=== PATIENT | male | born 1935 | race Caucasian/White ===

== ENCOUNTER → 2019-02-21 | Outpatient (CLI) | payer OTHER | LOC: RAD 09:35 | DX: R05 Cough (principal); R09.89 Other specified symptoms and signs involving the circulatory and respiratory systems ==

== ENCOUNTER → 2020-03-29 | Outpatient (CLI) | payer OTHER | LOC: RAD 16:14 | PROVIDERS: ATTEND Neuromusculoskeletal Medicine & OMM | DX: M46.06 Spinal enthesopathy, lumbar region (principal); M43.27 Fusion of spine, lumbosacral region; M54.30 Sciatica, unspecified side ==

== ENCOUNTER → 2020-04-10 | Outpatient (CLI) | payer OTHER | LOC: MRI 08:58 | PROVIDERS: ATTEND Neuromusculoskeletal Medicine & OMM | DX: M51.16 Intervertebral disc disorders with radiculopathy, lumbar region (principal); M48.061 Spinal stenosis, lumbar region without neurogenic claudication ==

== ENCOUNTER → 2020-04-24 | Outpatient (CLI) | payer OTHER ==
[~2020-04-24] VITALS: Ht 175.3 cm; Wt 102.1 kg
[~2020-04-24] MED LIST: AMLODIPINE BESY10 MG PO; ATORVASTATIN CA10 MG PO; FINASTERIDE5 MG PO; FISH OIL 1,0001 EAC9 PO; GLIPIZIDE XL10 MG PO; GLUCOPHAGE500 MG PO; LOSARTAN-HCTZ1 EAC2 PO; TERAZOSIN HCL10 MG PO; VITAMIN B-12500 MC5 PO
--- NOTE | ~2020-04-24 | HPC ---
[facility] [place] [address] PAIN MANAGEMENT CONSULTATION Name: JUAN MARIE [id number] Admission: 04/24/20 Attend Phys: Pollo Bob DO Discharge: Date of : 36 Report #: [id number] THIS REPORT FOR: cc: Herminio Dexter,Pollo Huang DO ~ CC: Pollo Dexter MD DATE OF SERVICE: 04/24/2020 CHIEF COMPLAINT: Low back pain, bilateral lower extremity pain with paresthesias. HISTORY OF PRESENT ILLNESS: As you know, the patient is a very pleasant 84-year-old male who reports progressively worsening lower extremity weakness that began about 1 year ago. He had increasing pain that began in February 2020. He denies injury or trauma. He sought evaluation through [facility] who advised the patient that there was a likelihood of fairly significant arthritic changes of the cervical spine. He was sent to see Dr. Faria, their pain management practitioner who advised the patient, he had severe arthritic changes of the low back, but was more concerned about cervical radicular symptoms. The patient returned to see his primary care physician, Dr. Dexter who then referred the patient to Dr. Royce Chatterjee for evaluation for lumbar radiculopathy. MRI findings dated 04/10/2020 showed severe near critical central canal stenosis at this L3-L4 and L4-L5 level. The patient was advised of the surgical options. He could undergo to treat symptoms. The patient chose conservative treatment initially. He was subsequently referred to our clinic to discuss the possibility of undergoing epidural injections. The patient describes today, pain is continuous with intermittent exacerbation of his symptoms, radiating pain all the way up to 10/10. The patient indicates his symptoms are cramping and throbbing in sensation, though he is having perceived weakness in the lower extremities and difficulty with ambulating long distances. He describes the pain as 3/10 today, daily average at 8/10, worst pain has been is 10/10. The patient states that standing and walking any distance exacerbates symptoms as well as lying in bed and arising from bed in the morning and improves with repositioning, sitting and movement. He has been referred to our service to discuss treatment options for suspected lumbar radiculopathy secondary to severe near critical central canal stenosis. PAST MEDICAL HISTORY: 1. Diabetes mellitus type 2. 2[place] [address] PAIN MANAGEMENT CONSULTATION Name: JUAN MARIE [id number] Admission: 04/24/20 Attend Phys: Pollo Bob DO Discharge: Date of : 36 Report #: [id number] 3. Hypertension. 4. Bleeding disorder. 5. Coronary artery disease. 6. Peptic ulcer disease. PAST SURGICAL HISTORY: Carpal tunnel release, left in November 2019 and lumbar diskectomy in . SOCIAL HISTORY: The patient denies tobacco, IV or illicit drug use, admits to 2-3 alcoholic beverages per day. He is retired, retiring in 2005. He is not receiving workmen's compensation nor is trying to obtain discrete benefits. He is not in litigation in regards to pain. He is unaccompanied at today's visit. REVIEW OF SYSTEMS: Positive for fatigue and weakness, wearing corrective eyewear, hearing loss with tinnitus, shortness of breath with walking or lying flat, loss of appetite, frequent urination, nocturia, incontinence, dribbling to urine, sexual difficulty, non-insulin dependent diabetes, excessive thirst and urination, bleeding and bruising tendencies, weakness in the lower extremities and chronic low back pain. All other review of systems negative per 12-point review of systems other than those listed in history of present illness. Pain impact score rated at 47/70 indicating severe interference of daily activities secondary to pain. IMAGING: MRI lumbar spine obtained 04/10/2020 shows L2-L3 with no disk bulge, no central canal stenosis. There is ligamentum flavum hypertrophy. L3-L4 shows acquired central canal stenosis secondary to facet arthropathy and hypertrophy of the ligamentum flavum, reducing canal to 6 mm. At L4-L5, there is central canal stenosis secondary to broad-based disk bulge, hypertrophy and ligamentum flavum hypertrophy leading to central canal measuring only 5 mm. L5-S1, no significant disk bulge, central canal appears normal. There is severe facet arthropathy with severely narrowed left and severely narrowed right neural foramen. PQRS: The patient has known arthritic changes of bilateral hands and lumbar spine. No rheumatoid arthritis. He is placing current pain score 3/10. He is at fall risk, but has not had a fall in last 3 months. He utilizes a cane for ambulation and balance as he has bilateral lower extremity weakness. He is not on blood thinners, but is treated for hypertension. He is not on chronic opioids and has a low opiate addiction potential based on our assessment tool. Pain impact is 47/70, severe interference of daily activities secondary to pain. PHYSICAL EXAMINATION: VITAL SIGNS: Blood pressure 135/60, pulse 70, respiratory rate 16 and unlabored. The patient is 100% on room air. Height 5 feet 9 inches tall, weight 225 pounds, BMI calculated 33.2. [address] [place] [address] PAIN MANAGEMENT CONSULTATION Name: JUAN MARIE Room #: REG [facility]#: [id number] Admission: 04/24/20 Attend Phys: Pollo Bob DO Discharge: Date of : 36 Report #: [id number] GENERAL: Well-developed, well-nourished, well-hydrated exogenously obese 84-year-old male. He appears his stated age. He is placing current pain score at today's visit 12/12. HEENT: Normocephalic, atraumatic. Pupils equal, round and reactive. NEUROLOGIC: Speech is fluent. The patient deemed an excellent historian. LUNGS: Clear, no wheeze, rhonchi or rales. CARDIOVASCULAR: Regular. No appreciable gallop, no rub. ABDOMEN: Soft, obese, normoactive bowel sounds. EXTREMITIES: Show no clubbing, no cyanosis, no edema. MUSCULOSKELETAL: Lower extremity strength is symmetrical 5/5, though there is some weakness with sustained contraction. Deep tendon reflexes 1+/4 at patella and Achilles. Babinski is downgoing. Gait is antalgic favoring right lower extremity. He utilizes a cane for ambulation. Pain is elicited with weightbearing. Muscle bulk and tone equal and symmetrical. Seated straight leg raising is positive. Supine straight leg raising is positive. Irina's test is negative. Modified Gaenslen's positive for axial low back pain. ASSESSMENT: 1. Symptomatic lumbar radiculopathy. 2. 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 3. Displacement of lumbar intervertebral disk with radiculopathy. 4. Lumbosacral spondylosis with radiculopathy. 5. Neural foraminal stenosis of lumbar spine. 6. Lumbar degeneration. 7. Chronic intractable pain. PLAN: 1. Based on today's physical exam and history the patient provides the descriptors the patient uses in regards to pain as well as the increasing weakness he is experiencing in his legs as well as a loss of proprioception. Likely source of the patient's pain is central canal stenosis. The patient does have severe near critical central canal stenosis at levels L3-L4 and L4-L5 with L4-L5 being greater compressive area. We have discussed the findings of his MRI and correlated those to his current symptoms and weakness he has been experiencing in the bilateral legs. After discussion of the findings of his MRI and how they correlate to his current symptoms. We discussed the treatment options available breakthrough pain management. We discussed the following with the patient today. We discussed physical therapy, stretching exercises, core strengthening and a concerted effort at weight loss. We discussed medication management with addition of neuropathic pain medications and a consistent nonsteroidal anti-inflammatory. We discussed lumbar epidural injection under fluoroscopic guidance for which the patient was referred to our service. We also discussed the possibility of using a spinal cord stimulator, provided analgesic benefit. We also discussed surgical decompression at the L3-L4 and L4-L5 level to address [address] [address] PAIN MANAGEMENT CONSULTATION Name: JUAN MARIE Room #: REG SERJIO Graves#: [id number] Admission: 04/24/20 Attend Phys: Pollo Bob DO Discharge: Date of : 36 Report #: [id number] severe near critical central canal stenosis. After reviewing the risks and benefits of all proposed treatment options, the patient chose to move forward with a lumbar epidural injection under fluoroscopic guidance. 2. The patient was advised that due to third alliance party payer restrictions, authorization would have to be obtained before the patient could undergo a lumbar epidural injection. We will begin the authorization process immediately. This may take 12-72 hours to gain the authorization. We will begin this process immediately. We will then have the patient return once that has been completed. 3. No medication changes made at today's visit. The patient will continue current medical therapy as previously prescribed. 4. We will see the patient back in followup visit to undergo the first in a series of lumbar epidural injections once the authorization has been obtained. We are hopeful that we will have this authorization quickly to be able to provide the injection requested by Dr. Royce Chatterjee and the primary care physician, Dr. Dexter to address this gentleman's ongoing lower extremity pain. 5. We wish to thank Dr. Chatterjee and Dr. Dexter for the referral of this patient to our clinic. We will keep you apprised of his response to treatment as we address lumbar radiculopathy secondary to severe near critical central canal stenosis. Again, we wish to thank you for the opportunity to see the patient in consultation. By: [id number] Pollo Bob DO /nt
[2020-04-24 14:52] VITALS: BP 135/60
--- NOTE | 2020-04-24 15:05 | NUR ---
Pain Clinic Assessment: 1. History of Osteoarthritis: HANDS History of Rheumatoid Arthritis: Not Applicable 2. Height: 5 ft. 9 in. 175.3 cm. Weight: 225.0 lb. oz. 102.060 kg. Patient's BMI: 33.2 3. Vital Signs: BP: 135/60 Pulse: 70 Resp: 16 Temp: 02 Sat: 100 ECG Mon: 4. Pain Intensity: 3 5. Fall Risk: Dizziness: N Needs help standing or walking: Y Fallen in the last 3 months: N Fall risk comments: 6. Patient on Blood Thinner: None 7. History of Hypertension: Y 8. Opioid Therapy greater than 6 weeks: N Opiate Contract Signed: 9. Risk Assessment Tool Provided: low-0 10. Functional Assessment Tool: 11. Recreational Drug Use: Never Drug Type: Tobacco Use: Former Smoker Tobacco Type: Amount or Packs/day: How Many Years: Alcohol Use: Yes Frequency: Daily Quant: 2-3
== END ==
LOC: PAIN 07:05
PROVIDERS: ATTEND Anesthesiology Pain Medicine
DX: M54.5 Low back pain (principal); M79.604 Pain in right leg; M79.605 Pain in left leg; R20.2 Paresthesia of skin; E11.9 Type 2 diabetes mellitus without complications; I10 Essential (primary) hypertension; E78.2 Mixed hyperlipidemia; D68.9 Coagulation defect, unspecified; I25.10 Atherosclerotic heart disease of native coronary artery without angina pectoris; K27.9 Peptic ulcer, site unspecified, unspecified as acute or chronic, without hemorrhage or perforation

== ENCOUNTER → 2020-04-25 | Outpatient (CLI) | payer OTHER ==
[~2020-04-25] VITALS: Ht 175.3 cm; Wt 102.1 kg
[2020-04-25 15:36] VITALS: BP 131/58
--- NOTE | 2020-04-25 15:51 | NUR ---
Pain Clinic Assessment: 1. History of Osteoarthritis: HANDS History of Rheumatoid Arthritis: Not Applicable 2. Height: 5 ft. 9 in. 175.3 cm. Weight: 225.0 lb. oz. 102.060 kg. Patient's BMI: 33.2 3. Vital Signs: BP: 131/58 Pulse: 66 Resp: 14 Temp: 02 Sat: 98 ECG Mon: 4. Pain Intensity: 3 NOW 6-7 IN AM 5. Fall Risk: Dizziness: N Needs help standing or walking: Y Fallen in the last 3 months: N Fall risk comments: 6. Patient on Blood Thinner: None 7. History of Hypertension: Y 8. Opioid Therapy greater than 6 weeks: N Opiate Contract Signed: 9. Risk Assessment Tool Provided: low-0 10. Functional Assessment Tool: / 11. Recreational Drug Use: Never Drug Type: Tobacco Use: Former Smoker Tobacco Type: Amount or Packs/day: How Many Years: Alcohol Use: Yes Frequency: Quant:
== END | disposition home or self-care (01) ==
LOC: PAIN 14:28
PROVIDERS: ATTEND Anesthesiology Pain Medicine
DX: M54.16 Radiculopathy, lumbar region (principal); G89.29 Other chronic pain; Z98.890 Other specified postprocedural states; Z79.899 Other long term (current) drug therapy; Z87.891 Personal history of nicotine dependence

== ENCOUNTER 2020-12-02 15:00 | Emergency (ER) | payer OTHER ==
[~2020-12-02] VITALS: Ht 177.8 cm; Wt 99.8 kg
--- NOTE | ~2020-12-02 | EMS ---
[address] [address] EMS Patient Care Report Name: JUAN MARIE Room #: DEP FRANCISCO Graves#: [id number] Admission: 12/02/20 Attend Phys: Discharge: 12/02/20 Date of : 36 Report #: [id number] THIS REPORT FOR: //name// Report Transmitted: 12/02/2020 19:14 EMS Care Summary [facility] MED-ACT Incident [id number] @ 12/02/2020 14:26 Incident [address] [place] [address] Patient JUAN MARIE Male, 84 Years 1935 Patient Address [address] [place] [address] Patient History Congestive Heart Failure (CHF),Diabetes, Patient Allergies Sulfa, Patient Medications Losartan, Metformin, Amlodipine, Glipizide, Finasteride, Terazosin, Chief Complaint "I fell and hurt my back" Disposition Transported No Lights/[place] Reason Falls Transported To [facility] Narrative HISTORY: Upon EMS arrival the patient was sitting at the kitchen table with. The patient stated he was carrying a laundry basket through the kitchen and he tripped over a tile on the kitchen floor, he stated he fell forward hitting his face on the kitchen table and then landing on his stomach on the floor. The [address] [address] EMS Patient Care Report Name: JUAN MARIE Room #: DEP [facility]#: [id number] Admission: 12/02/20 Attend Phys: Discharge: 12/02/20 Date of : 36 Report #: [id number] patient denied losing consciousness or having any lightheadedness, N/V, or dizziness after the fall. He stated he felt a sharp localized pain in the middle of his thoracic spine, he denied it radiating up or down his spine. He stated he had had surgery on his lower back in September and was concerned about reinjuring the repaired area. He denied there being any pain in his lower back. The patient stated that it is normal for him to be off balance and had fallen once a year ago. He stated he is diagnosed with CHF and has chronic issues with weakness, he stated, "when I fall I can't get up on my own". He stated a neighbor came over to his house and assisted him in getting up and getting to the kitchen table today. The patient denied any numbness, tingling, loss of sensation or burning sensation in the upper or lower extremities, he denied any N/V, change in vision, GOMES, neck pain, lightheadedness or dizziness while sitting or standing, he denied any increase in weakness or unilateral weakens. The patient denied having any recent COVID-19 symptoms or recently knowingly coming into contact with an individual that has COVID-19. TREATMENT: V/S monitored, the patient had a mask on prior to EMS arrival, IV established, TEMP, 50mcg of fentanyl was administered IVSP, 4 lead, the patient was put in the position of comfort, exams were repeated. TRANSPORT: The patient stood and walked to the cot with assistance, he was moved to the ED bed via sheet drag without incident. DESTINATION: The patient was taken to [facility] ED room 2, report was given to nursing staff. Initial Vitals @14:49P: 86,WA Suspected: false @14:48P: 79,R: 20,BP: 185/71,SpO2: 96, @14:42P: 86,R: 20,BP: 187/68,Pain: 8/10,GCS: 15,Temp: 98.5F,SpO2: 97,Revised Trauma: 12, @14:55P: 66,R: 20,BP: 166/72,Pain: 4/10,SpO2: 96, Assessments @14:34MENTAL:Person Oriented,Event Oriented,Time Oriented,Place Oriented,SKIN:HEENT:Eyes: Left Pupil: 4-mm,Eyes: Right Pupil: 4-mm,Head/Face: Other,LUNG SOUNDS:ABDOMEN:PELVIS//GI:EXTREMITIES:Left Leg: Edema,Right Leg: Edema,PULSE:Radial: 2+ Normal,NEURO: Impression Back Pain Procedures @PTASurgical Mask on PatientResponse: Unchanged@14:45Saline Lock 10cc (20 ga) Site: Antecubital-LeftResponse: UnchangedSucceeded@14:47Fentanyl - 50 Micrograms (mcg) - Intravenous (IV)Response: Improved [address] [address] EMS Patient Care Report Name: JUAN MARIE Room #: DEP FRANCISCO Graves#: [id number] Admission: 12/02/20 Attend Phys: Discharge: 12/02/20 Date of : 36 Report #: [id number] Timeline CLINICAL DOCUMENT IMPROVEMENT EDUCATOR,Surgical Mask on Patient,Response: Unchanged 14:25,Call Received 14:25,Psap Call 14:26,Dispatched 14:27,En Route 14:32,On Scene 14:33,At Patient 14:42,BP: 187/68 M,PULSE: 86,RR: 20 R,SPO2: 97 Ox,ETCO2: ,BG: ,PAIN: 8,GCS: 15, 14:45,Saline Lock 10cc 20 ga Site: Antecubital-Left,Response: UnchangedSucceeded, 14:47,Fentanyl - 50 Micrograms (mcg) - Intravenous (IV),Response: Improved 14:48,BP: 185/71 M,PULSE: 79,RR: 20 R,SPO2: 96 Ox,ETCO2: ,BG: ,PAIN: ,GCS: , 14:49,Depart Scene 14:49,BP: / M,PULSE: 86,RR: R,SPO2: Ox,ETCO2: ,BG: ,PAIN: ,GCS: , 14:55,BP: 166/72 M,PULSE: 66,RR: 20 R,SPO2: 96 Ox,ETCO2: ,BG: ,PAIN: 4,GCS: , 14:55,At Destination 15:09,Call Closed Disclaimer v1.1 Copyright 2020 [employer] This EMS Care Summary contains data elements from the applicable legal record (which may be displayed differently). It is designed to provide pertinent information for the following purposes: continuity of care, clinical quality, and state data reporting. The complete legal record is available to ED staff and administrators of the receiving hospital in [employer] Patient Tracker. All data is provided "as is."
[2020-12-02] MEDS ORDERED: METFORMIN HCL500 M3 PO (15:13)
[2020-12-02] MEDS ORDERED: VITAMIN D3-ALO1 EACH PO (15:13)
[2020-12-02] MEDS ORDERED: VITAMIN B-125000 MCG SUBLING (15:14)
[2020-12-02] MEDS ORDERED: HYDROCODON-ACE1 EAC7 PO (16:57)
[2020-12-02 18:00] VITALS: BP 143/51
== END 2020-12-02 18:00 | disposition home or self-care (01) ==
LOC: ER 15:00
DX: S02.2XXA Fracture of nasal bones, initial encounter for closed fracture (principal); S27.52XA Contusion of thoracic trachea, initial encounter; Z87.891 Personal history of nicotine dependence; Z79.899 Other long term (current) drug therapy; Z88.2 Allergy status to sulfonamides; W01.190A Fall on same level from slipping, tripping and stumbling with subsequent striking against furniture, initial encounter; Y93.89 Activity, other specified; Y92.89 Other specified places as the place of occurrence of the external cause; Y99.8 Other external cause status

== ENCOUNTER → 2021-09-20 | Outpatient (CLI) | payer OTHER ==
[~2021-09-20] VITALS: Ht 177.8 cm; Wt 97.5 kg
[~2021-09-20] MED LIST changes: +HYDROCODON-ACE1 EAC7 PO; +METFORMIN HCL500 M3 PO; +TOPROL XL25 MG PO; +VITAMIN B-125000 MCG SUBLING; +VITAMIN B12-FO1 EAC1 PO; +VITAMIN D3-ALO1 EACH PO; +VITAMIN D310 MC2 PO
--- NOTE | 2021-09-25 09:38 | P ---
[facility] [place] [address] PROCEDURE REPORT Name: JUAN MARIE [facility] #: [facility] [id number] Admission: 09/20/21 Attend Phys: Israel Altman Discharge: Date of : 36 Report #: [id number] THIS REPORT FOR: cc: Pollo Thompson James A. DO McElhinney, Christian C. MD ~ cc: Pollo Thompson DO DATE OF SERVICE: 09/20/2021 PROCEDURE PERFORMED: Upper endoscopy with biopsies and esophageal dilation. HISTORY OF PRESENT ILLNESS: The patient is an 85-year-old male who underwent an upper endoscopy by myself with dilation on 04/05/2015. He was noted to have significant white plaquing of his esophagus. Biopsies at that time showed hyperkeratosis and parakeratosis. No fungal elements were noted. Dilation was performed at that time, which was helpful. DESCRIPTION OF PROCEDURE: The risks and benefits of the procedure were explained to the patient, those risks including, but not limited to bleeding, perforation, and the risk of sedation. He understood these risks and gave informed consent. Sedation was given using propofol per Anesthesia. Next, using a standard Olympus upper endoscope, the scope was placed in the patient's mouth and advanced under direct vision through the esophagus, stomach and into the second portion of the duodenum. The larynx was normal in appearance. Throughout the upper, mid and portion of the distal esophagus, white plaquing was again noted. This was similar in appearance to 6 years ago. Multiple biopsies were obtained. There was no obvious stricture at the GE junction, it was normal. Overall, the gastric mucosa was normal. The pylorus was normal and patent. The duodenal bulb, first and second portion were all normal. The scope was then brought back up into the patient's stomach and a Savary guidewire was inserted through the scope, leaving the guidewire in place. The scope was then withdrawn. Next, a 48-Hebrew Savary dilation was then performed without difficulty. The wire and dilator removed. The scope was reintroduced into the patient's stomach. There was no evidence of mucosal tear after dilation. The scope was then withdrawn and the procedure terminated. The patient tolerated the procedure well. IMPRESSION: 1. Significant white plaquing throughout the esophagus as noted before. Biopsies obtained. 2. Otherwise normal upper endoscopy. RECOMMENDATIONS: 1. Await biopsy results. 2. Observe the patient status post dilation. [address] [address] PROCEDURE REPORT Name: JUAN MARIE [facility] [id number] Admission: 09/20/21 Attend Phys: Israel Altman Discharge: Date of : 36 Report #: [id number] Thank you for allowing me to participate in his care. <ELECTRONICALLY SIGNED> By: Israel Davis MD 09/25/21 0938 [id number] [id number] Israel Davis MD /macario
--- NOTE | 2021-09-26 13:08 | PATH ---
[facility] [address] [place] [address] PATHOLOGY RPT PROCEDURE Name: FRANKJUAN Room #: REG [facility] Reymundo.#: [id number] Admission: 09/20/21 Date of : 36 Discharge: Report #: [id number] Path Case #: [id number] [facility] Accession Number: [id number] . 01 Material submitted: . esophagus - ESOPHAGEAL PLAQUE BIOPSY . 01 Clinical history: . ESOPHAGOGASTRODUODENOSCOPY DYSPHAGIA DYSPHAGIA, ESOPHAGITIS . 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 . (RONNIE:damaso; 09/24/2021) [facility] 09/24/2021 1606 Local . 02 Comment: We find no evidence of high grade dysplasia or of malignancy. . (RONNIE:damaso; 09/24/2021) . 02 Electronically signed: . Tc Pinon MD, Pathologist NPI- [id number] . 01 Gross description: . The specimen is received in formalin, labeled "Juan Marie, esophageal plaque BX". Received are 3 segments of pale fernandes tissue ranging in size from 0.3 to 0.5 cm in maximum dimensions. The specimen is submitted entirely in cassette A1.([facility]; 09/23/2021) [facility] 09/23/2021 1028 Local . 02 Pathologist provided ICD-10: K22.9 . 02 CPT . 129029 Specimen Comment: A courtesy copy of this report has been sent to [phone], [phone] Specimen Comment: [id number] Specimen Comment: Report sent to , DR GILES /DR DE LEON Specimen Comment: A duplicate report has been generated due [place] [address] PATHOLOGY RPT PROCEDURE Name: JUAN MARIE Room #: REG CLI [facility].#: [id number] Admission: 09/20/21 Date of : 36 Discharge: Report #: [id number] Path Case #: [id number] Performed at: 01 [facility] [address] [id number] MD Santana Spencer MD Phone: [phone] Performed at: [address] [facility] [address] [id number] MD Tc Pinon MD Phone: [phone]
== END | disposition home or self-care (01) ==
LOC: GI 10:01
PROVIDERS: ATTEND Specialist
DX: K22.89 Other specified disease of esophagus (principal); I10 Essential (primary) hypertension; E78.00 Pure hypercholesterolemia, unspecified; E11.9 Type 2 diabetes mellitus without complications; N40.0 Benign prostatic hyperplasia without lower urinary tract symptoms; G47.30 Sleep apnea, unspecified; Z98.890 Other specified postprocedural states; Z20.822 Contact with and (suspected) exposure to COVID-19; Z79.899 Other long term (current) drug therapy; Z87.891 Personal history of nicotine dependence; Z88.2 Allergy status to sulfonamides
CPT/HCPCS: 62110; 62900

== ENCOUNTER 2021-10-08 07:15 | Inpatient (IN) | payer OTHER ==
[~2021-10-08] VITALS: Ht 177.8 cm; Wt 94.8 kg
--- NOTE | ~2021-10-08 | EMS ---
[facility] [address] [place] [address] EMS Patient Care Report Name: JUAN MARIE Room #: REG FRANCISCO Graves#: [id number] Admission: 10/08/21 Attend Phys: Discharge: Date of : 37 Report #: [id number] THIS REPORT FOR: //name// Report Transmitted: 10/08/2021 08:30 EMS Care Summary [facility] MED-ACT Incident [id number] @ 10/08/2021 06:42 Incident Location [address] [place] [address] Patient JUAN MARIE Male, 85 Years 1935 Patient Address [address] [place] [address] Patient History Diabetes,Hypertension (HTN),Hyperlipidemia,Back Surgery, Patient Allergies No known allergies, Patient Medications Terazosin, Losartan, Atorvastatin, Metoprolol, Finasteride, Hydrochlorothiazide (Hctz), Metformin, Glipizide, Chief Complaint I can't get up Disposition Transported No Lights/[place] Dispatch Reason Falls Transported To [facility] Narrative Dispatched to a residence for a male pt reported to have fallen. EMS arrives on scene to find LFD crew assisting pt into a wheelchair. FD crew reports that the pt had been unable to support himself and fallen slowly to the floor when [facility] [address] [place] [address] EMS Patient Care Report Name: JUAN MARIE Room #: REG Reymundo.#: [id number] Admission: 10/08/21 Attend Phys: Discharge: Date of : 37 Report #: [id number] attempting to use the toilet. They report that he denies any injuries from the event. FD crew reports that the pt has been unable to walk as usual or get up out of bed without difficulty for a few days, leading to several of these types of falls over the past few days. They say his only complaint is of mild sore aching to his hips. Pt reports that he has lost strength, particularly in his legs recently and is having increased difficulty with mobility. He says that he normally walks with a cane or a walker, but for the past few days has been using a wheelchair (that he had from a previous back surgery) to get around. He denies any use of blood thinners, head, neck, or back pain, or loss of consciousness. He agrees to transport and requests [facility]. Pt is assisted with pivoting from the wheelchair to the cot before being secured and draped with blankets. He is moved to the ambulance for a brief, no lights or sirens transport to [facility]. Pt is lifted from the cot to the ER bed upon arrival. Care transferred to waiting RN. Initial Vitals @07:06P: 78,BP: 201/71, @07:09P: 72,Temp: 100.1F,Glucose: 122,SpO2: 95,[place] Suspected: false @PTAP: 74,R: 18,BP: 167/73,Pain: 2/10,GCS: 15,SpO2: 94,Revised Trauma: 12, Impression Reduced Mobility Procedures @06:55 Surgical Mask on Patient Response: Unchanged @06:53 ALS Assessment Response: UnchangedSucceeded Timeline MEDIATION COMMISSIONER,BP: 167/73 M,PULSE: 74,RR: 18 R,SPO2: 94 Ox,ETCO2: ,BG: ,PAIN: 2,GCS: 15, 06:40,Call Received 06:40,Psap Call 06:42,Dispatched 06:44,En Route 06:50,On Scene 06:52,At Patient 06:53,ALS Assessment,Response: UnchangedSucceeded, 06:55,Surgical Mask on Patient,Response: Unchanged 07:03,Depart Scene 07:06,BP: 201/71 M,PULSE: 78,RR: R,SPO2: Ox,ETCO2: ,BG: ,PAIN: ,GCS: , 07:09,BP: / M,PULSE: 72,RR: R,SPO2: 95 Ox,ETCO2: ,B,PAIN: ,GCS: , 07:10,At Destination 07:32,Call Closed [facility] [address] [place] [address] EMS Patient Care Report Name: JUAN MARIE Room #: REG FRANCISCO Graves#: [id number] Admission: 10/08/21 Attend Phys: Discharge: Date of : 37 Report #: [id number] Disclaimer v1.1 Copyright 2021 [employer] This EMS Care Summary contains data elements from the applicable legal record (which may be displayed differently). It is designed to provide pertinent information for the following purposes: continuity of care, clinical quality, and state data reporting. The complete legal record is available to ED staff and administrators of the receiving hospital in [employer]'s Patient Tracker. All data is provided "as is."
--- NOTE | ~2021-10-08 | EMS ---
[facility] [address] [place] [address] EMS Patient Care Report Name: JUAN MARIE Room #: REG FRANCISCO Graves#: [id number] Admission: 10/08/21 Attend Phys: Discharge: Date of : 37 Report #: [id number] THIS REPORT FOR: //name// Report Transmitted: 10/08/2021 07:28 EMS Care Summary [facility] MED-ACT Incident [id number] @ 10/08/2021 06:42 Incident Location [address] [place] [address] Patient JUAN MARIE Male, 85 Years 1935 Patient Address [address] [place] [address] Patient History Diabetes,Hypertension (HTN),Hyperlipidemia,Back Surgery, Patient Allergies No known allergies, Patient Medications Terazosin, Losartan, Atorvastatin, Metoprolol, Finasteride, Hydrochlorothiazide (Hctz), Metformin, Glipizide, Chief Complaint I can't get up Disposition Transported No Lights/[place] Dispatch Reason Falls Transported To [facility] Narrative Dispatched to a residence for a male pt reported to have fallen. EMS arrives on scene to find LFD crew assisting pt into a wheelchair. FD crew reports that the pt had been unable to support himself and fallen slowly to the floor when [facility] [address] [place] [address] EMS Patient Care Report Name: JUAN MARIE Room #: REG Reymundo.#: [id number] Admission: 10/08/21 Attend Phys: Discharge: Date of : 37 Report #: [id number] attempting to use the toilet. They report that he denies any injuries from the event. FD crew reports that the pt has been unable to walk as usual or get up out of bed without difficulty for a few days, leading to several of these types of falls over the past few days. They say his only complaint is of mild sore aching to his hips. Pt reports that he has lost strength, particularly in his legs recently and is having increased difficulty with mobility. He says that he normally walks with a cane or a walker, but for the past few days has been using a wheelchair (that he had from a previous back surgery) to get around. He denies any use of blood thinners, head, neck, or back pain, or loss of consciousness. He agrees to transport and requests [facility]. Pt is assisted with pivoting from the wheelchair to the cot before being secured and draped with blankets. He is moved to the ambulance for a brief, no lights or sirens transport to [facility]. Pt is lifted from the cot to the ER bed upon arrival. Care transferred to waiting RN. Initial Vitals @07:06P: 78,BP: 201/71, @07:09P: 72,Temp: 100.1F,Glucose: 122,SpO2: 95,[place] Suspected: false @PTAP: 74,R: 18,BP: 167/73,Pain: 2/10,GCS: 15,SpO2: 94,Revised Trauma: 12, Impression Reduced Mobility Procedures @06:55 Surgical Mask on Patient Response: Unchanged @06:53 ALS Assessment Response: UnchangedSucceeded Timeline WELFARE SPECIALIST,BP: 167/73 M,PULSE: 74,RR: 18 R,SPO2: 94 Ox,ETCO2: ,BG: ,PAIN: 2,GCS: 15, 06:40,Call Received 06:40,Psap Call 06:42,Dispatched 06:44,En Route 06:50,On Scene 06:52,At Patient 06:53,ALS Assessment,Response: UnchangedSucceeded, 06:55,Surgical Mask on Patient,Response: Unchanged 07:03,Depart Scene 07:06,BP: 201/71 M,PULSE: 78,RR: R,SPO2: Ox,ETCO2: ,BG: ,PAIN: ,GCS: , 07:09,BP: / M,PULSE: 72,RR: R,SPO2: 95 Ox,ETCO2: ,B,PAIN: ,GCS: , 07:10,At Destination 07:32,Call Closed [facility] [address] [place] [address] EMS Patient Care Report Name: JUAN MARIE Room #: REG FRANCISCO Graves#: [id number] Admission: 10/08/21 Attend Phys: Discharge: Date of : 37 Report #: [id number] Disclaimer v1.1 Copyright 2021 [employer] This EMS Care Summary contains data elements from the applicable legal record (which may be displayed differently). It is designed to provide pertinent information for the following purposes: continuity of care, clinical quality, and state data reporting. The complete legal record is available to ED staff and administrators of the receiving hospital in [employer]'s Patient Tracker. All data is provided "as is."
[2021-10-08 07:17] VITALS: BP 164/59
[2021-10-08 08:02] LABS: ABSOLUTE NEUTROPHILS 4.3 thou/uL (1.4-8.2); BASOPHILS 0.3 % (0.0-2.0); EOSINOPHILS 0.2 % (0.0-3.0); HEMATOCRIT 38.7 % (42.0-52.0); HEMOGLOBIN 12.8 gm/dL (14.0-18.0); LYMPHOCYTES 16.9 % (24.0-44.0); MCH 30.8 pg (26.0-34.0); MCHC 33.1 g/dL (28.0-37.0); MCV 92.8 fL (80.0-100.0); MONOCYTES 11.6 % (1.0-8.0); PLATELET COUNT 152 thou/uL (150-400); RBC 4.16 mil/uL (4.50-6.00); RDW 13.4 % (10.5-14.5)
[2021-10-08 08:09] LABS: CALCIUM 8.2 mg/dL (8.5-10.1); CREATININE 0.9 mg/dL (0.7-1.3); POTASSIUM 3.5 mmol/L (3.5-5.1)
[2021-10-08 09:16] LABS: URINE BILIRUBIN NEGATIVE (Negative); URINE BLOOD TRACE (Negative); URINE CLARITY CLEAR; URINE COLOR YELLOW; URINE GLUCOSE-RANDOM* NEGATIVE (Negative); URINE KETONES NEGATIVE (Negative); URINE LEUKOCYTES-REFLEX NEGATIVE (Negative); URINE NITRITE-REFLEX POSITIVE (Negative); URINE PROTEIN (DIPSTICK) NEGATIVE (Negative); URINE SPECIFIC GRAVITY 1.015 (1.005-1.035)
[2021-10-08 09:33] LABS: AMORPHOUS URATES Moderate /LPF (None Seen); CASTS None Seen /LPF (None Seen); SQUAMOUS 0-3 Few /LPF (0-3); URINE RBC 1-2 Rare /HPF (NONE SEEN); URINE WBC-REFLEX 0-5 Rare /HPF (0-5)
[2021-10-08 17:54] LABS: FOLIC ACID 8.1 ng/mL (8.6-58.9)
--- NOTE | 2021-10-08 18:04 | NUR ---
85 year old males presents to the ED on 10-08-21 via EMS after falling at home 2 hours prior. Patient has a history of spinal stenosis which patient reports is getting worse and unable to move at time and with notable weakness. Family looking for admission to acute rehab if possible as patient is to return home. The patient has been admitted for generalized weakness with advancing stenosis, COVID - 19 POSITIVE, DJD of the spine, DMII and HTN. Of note per ED Triage assessment patient noted as vaccinated and per ED ID NOW listed as POSITIVE. Anticipate need for therapy orders to be placed. . Orders for therapy have been placed. Daughter Katia at [phone] is listed as next of kin and contact. Daughter is the main contact and will be the contact going forward. Spoke with daughter who reports the son does live with the father. Introduced the role of CM and will await medical and therapy evaluations to ascertain next steps for discharge needs as family plans to discharge home hopefully after a Acute Rehab stay. Notified 5N liaison to review.
[2021-10-08 21:36] VITALS: BP 107/73
[2021-10-08 22:59] VITALS: BP 163/57
[2021-10-09 03:28] VITALS: BP 148/46
[2021-10-09 04:49] LABS: MCH 31.2 pg (26.0-34.0); MCHC 33.5 g/dL (28.0-37.0); MCV 93.1 fL (80.0-100.0); RBC 3.87 mil/uL (4.50-6.00); RDW 13.7 % (10.5-14.5); WBC 6.5 thou/uL (4.0-11.0)
--- NOTE | 2021-10-09 05:01 | NUR ---
PT ARRIVED VIA CART AT 2230. RECENT HX OF FALLS SEEN WHEN PT WAS TRYING TO USE URINAL. MAX ASSIST, GAIT BELT AND WALKER. ADMISSION COMPLETED, CARE PLAN SET, MED REC COMPLETED, AND INTERVENTIONS CLEANED UP. 02 ON ROOM AIR 90-93%. UPON ARRIVAL PT HAD LOW GRADE FEVER, TYLENOL GIVEN WITH GOOD RESULTS. CALL LIGHT WITHIN REACH.
[2021-10-09 05:07] LABS: CALCIUM 8.2 mg/dL (8.5-10.1); CREATININE 0.8 mg/dL (0.7-1.3); POTASSIUM 3.3 mmol/L (3.5-5.1)
[2021-10-09 07:32] VITALS: BP 168/66
[2021-10-09 15:47] VITALS: BP 132/41
--- NOTE | 2021-10-09 16:20 | NUR ---
SW reviewed chart and spoke with nursing and attending physician. Pt was admitted to 3W from the ED. Placed in Enhanced Isolation due to COVID. Pt has been febrile and on IV abx. Pt is on room air. 5N consult to be ordered to evaluate pt for admission to rehab. Will need insurance authorization. CRISTIANO is following to assist as needed with discharge planning.
--- NOTE | 2021-10-09 18:25 | NUR ---
PT PROGRESSING TOWARDS GOALS, UP WITH STAND BY ASSIST, REPORTS HE IS FEELING BETTER THAN YESTERDAY. ENCOURAGED TO USE FALL PRECAUTIONS AND CALL LIGHT, WAS UP TO CHAIR MOST OF THE DAY.
[2021-10-09 19:17] VITALS: BP 137/40
[2021-10-10 04:58] VITALS: BP 153/66
[2021-10-10 07:13] VITALS: BP 147/72
[2021-10-10] MEDS ORDERED: KEFLEX250 MG PO (10:37)
--- NOTE | 2021-10-10 12:28 | NUR ---
CRISTIANO reviewed chart and spoke with nursing and attending physician. Pt remains in Enhanced Isolation due to COVID. Pt is afebrile and on room air. Pt is on IV abx. SW discussed case with 5N rehab office coordinator. Pt does not have an acceptable rehab dx. Recommendation made for SNF or Home with HH. Pt is refusing to go to a facility. CRISTIANO spoke with pt's dtr, Katia, via phone to provide update. SW discussed options for SNF v. Home with HH. Pt's dtr states that she is agreeable with pt returning home with HH, because he is refusing to go to a facility. SW explained HH services and also private duty services. Pt lives with his son, Sharif, who is currently out of town. Pt's dtr states she lives close and will be able to assist as needed. Pt's PCP is Dr. Thompson. Pt's dtr states she was in the process of setting up HH with [facility]. SW notified [facility] liaison. Pt's dtr asking if pt will qualify for a rollator walker, as pt needs frequent breaks to rest during ambulation. Pt with hx of multiple falls at home. SW paged PT to discuss if pt is able to use a rollator walker safely. Pt's dtr states she will need to clean pt's house and get it ready for him. Anticipate pt will discharge home tomorrow. CRISTIANO updated attending physician and provided Katia's contact info for physician to call with an update. CRISTIANO also updated pt's nurse. CRISTIANO is following to assist as needed with discharge planning.
[2021-10-10 14:15] VITALS: BP 147/72
[2021-10-10 15:24] VITALS: BP 150/49
--- NOTE | 2021-10-10 18:23 | NUR ---
PT A/O X 4. PT STEADY TO BATHROOM FOR SHOWER. NO COMPLAINTS OF PAIN. PT IN CHAIR MOST OF SHIFT. PLAN IS TO DC TOMORROW WITH HH. SPOKE WITH DAUGHTER AND UPDATED. FALL PRECAUTIONS IN PLACE. WILL CONTINUE TO MONITOR.
[2021-10-10 19:25] VITALS: BP 157/50
[2021-10-11 02:31] VITALS: BP 166/71
--- NOTE | 2021-10-11 05:26 | NUR ---
ASSUMED PT CARE AT 1900. PT IS ALERT & ORIENTED X 4, AND IS CALM & COOPERATIVE. PT IS INCONTINENT OF STOOL AND HAD A SHOWER DURING THIS SHIFT. PT IS PLANNING ON DISCHARGE TODAY. CONTINUE WITH PLAN OF CARE.
[2021-10-11 08:04] VITALS: BP 153/34
[2021-10-11 09:33] VITALS: BP 153/34
[2021-10-11 10:45] VITALS: BP 153/34
--- NOTE | 2021-10-11 10:55 | NUR ---
DISCHARGE NOTE: GIVEN PT DISCHARGE PAPERWORK AND WENT OVER UPCOMING APPOINTMENTS, ISOLATION DATE, NEW PRESCRIPTIONS. DC IV AND TELEMETRY. PT SHOULD HAVE BEEN SENT HOME WITH WALKER, HOWEVER PT REFUSED SO HE COULD BE DC'D EARLIER. PT UPSET HE WAS NOT SENT HOME YESTERDAY. WAITING FOR RIDE CURRENTLY. WILL CONTINUE TO MONITOR.
--- NOTE | 2021-10-11 11:02 | NUR ---
DISCHARGE NOTE: CRISTIANO reviewed chart and spoke with nursing and attending physician. Pt remains in Enhanced Isolation due to COVID. Pt is medically stable for discharge home today with HH services. Pt is requesting to discharge APPLE. Pt's nurse had notified pt's dtr, Katia, or discharge orders. SW spoke with Katia via phone to discuss discharge. Katia is en route to the hospital to picker feeder pt. CRISTIANO explained that HH services will be contacting pt/family and can assist with obtaining a rollator walker. Pt needs to be evaluated to determine if he is safe to use one. Pt's dtr verbalized understanding and states she will either go buy one or will work with pt's PCP's office to order one. No additional discharge needs identified at this time. SW is available to assist should needs arise.
== END 2021-10-11 11:14 | disposition home health service (06) | DRG 177 ==
LOC: ER 07:15 → EROBS 14:10 → 3W 14:10
PROVIDERS: Emergency Medicine; ADMIT Hospitalist; ATTEND Hospitalist
DX: U07.1 COVID-19 (principal); R65.11 Systemic inflammatory response syndrome (SIRS) of non-infectious origin with acute organ dysfunction; E78.00 Pure hypercholesterolemia, unspecified; I10 Essential (primary) hypertension; G47.30 Sleep apnea, unspecified; M47.819 Spondylosis without myelopathy or radiculopathy, site unspecified; E11.9 Type 2 diabetes mellitus without complications; N40.0 Benign prostatic hyperplasia without lower urinary tract symptoms; Z87.11 Personal history of peptic ulcer disease; Z79.899 Other long term (current) drug therapy; Z79.84 Long term (current) use of oral hypoglycemic drugs; Z88.2 Allergy status to sulfonamides; Z87.891 Personal history of nicotine dependence; Z98.49 Cataract extraction status, unspecified eye
CPT/HCPCS: 10080; 10879